=== PATIENT | male | born 1990 | race Two or more races ===

== ENCOUNTER 2019-01-20 15:56 | Emergency (ER) | payer MEDICAID, OTHER ==
[~2019-01-20] VITALS: Ht 190.5 cm; Wt 77.1 kg
[2019-01-20 17:35] VITALS: BP 140/70
[2019-01-20] MEDS ORDERED: IBUPROFEN 600 MG TABLET PO ONE ×2 (18:05→18:30)
== END 2019-01-20 18:27 | disposition home or self-care (01) ==
LOC: ER 15:59
DX: S39.012A Strain of muscle, fascia and tendon of lower back, initial encounter (principal); R51 Headache; M25.511 Pain in right shoulder; M25.531 Pain in right wrist; M62.830 Muscle spasm of back; V49.49XA Driver injured in collision with other motor vehicles in traffic accident, initial encounter; Y93.89 Activity, other specified; Y92.413 State road as the place of occurrence of the external cause; Y99.8 Other external cause status

== ENCOUNTER 2024-06-05 20:36 | Emergency (ER) | payer OTHER ==
[~2024-06-05] VITALS: Ht 190.5 cm; Wt 74.8 kg
[2024-06-05 20:36] VITALS: BP 116/74; TEMP 98.2; O2SAT 97
[~2024-06-05 20:36] MED LIST: IBUP-1955 PO
== END 2024-06-06 00:06 | disposition home or self-care (01) ==
LOC: ER 20:40
DX: M79.671 Pain in right foot (principal)
CPT/HCPCS: 73630-TC

== ENCOUNTER 2024-07-24 22:05 | Emergency (ER) | payer OTHER ==
[~2024-07-24] VITALS: Ht 190.5 cm; Wt 74.8 kg
[2024-07-24] MEDS ORDERED: AMOX/CLAVULANATE 875 MG TABLET ONE (23:20)
[2024-07-24] MEDS: AMOX/CLAVULANATE 875 MG TABLET PO ONE (23:23)
[2024-07-24] MEDS: BACITRACIN ZINC OINT PACKET 1 EA PACKET TP ONE (23:24)
[2024-07-24] MEDS ORDERED: RABIES VACCINE (PCEC)/PF 1 EA KIT IM ONE (23:27)
[2024-07-24] MEDS ORDERED: AMOX-430 PO (23:28)
[2024-07-25] MEDS: RABIES IMMUNE GLOBULIN/PF 150 UNIT/ML VIAL IM ONE (00:20)
[2024-07-25] MEDS: RABIES VACCINE (PCEC)/PF 1 EA KIT IM ONE (00:20)
[2024-07-25 00:22] VITALS: BP 109/56; TEMP 98.4; O2SAT 98
[2024-07-27] MEDS ORDERED: RABIES VACCINE (PCEC)/PF 1 EA KIT IM ONE (18:54)
== END 2024-07-25 00:22 | disposition home or self-care (01) ==
LOC: ER 22:08
DX: S61.432A Puncture wound without foreign body of left hand, initial encounter (principal); Z79.899 Other long term (current) drug therapy; Z20.3 Contact with and (suspected) exposure to rabies; W55.01XA Bitten by cat, initial encounter; Y93.89 Activity, other specified; Y92.89 Other specified places as the place of occurrence of the external cause; Y99.8 Other external cause status
CPT/HCPCS: 90375

== ENCOUNTER 2024-07-26 15:26 | Emergency (ER) | payer OTHER ==
[~2024-07-26] VITALS: Ht 190.5 cm; Wt 75.3 kg
[~2024-07-26 15:26] MED LIST changes: +AMOX-430 PO
[2024-07-26 15:28] VITALS: BP 114/66; TEMP 98.3
[2024-07-26] MEDS: RABIES VACCINE (PCEC)/PF 1 EA KIT IM ONE (15:56)
[2024-07-26 16:11] VITALS: O2SAT 98
[2024-07-27] MEDS ORDERED: RABIES VACCINE (PCEC)/PF 1 EA KIT IM ONE (17:30)
== END 2024-07-26 16:21 | disposition home or self-care (01) ==
LOC: ER 15:28
DX: S61.432D Puncture wound without foreign body of left hand, subsequent encounter (principal); Z23 Encounter for immunization; Z29.14 Encounter for prophylactic rabies immune globulin; Z60.2 Problems related to living alone; Z79.899 Other long term (current) drug therapy; W55.01XD Bitten by cat, subsequent encounter

== ENCOUNTER 2024-07-27 16:58 | Emergency (ER) | payer OTHER ==
[~2024-07-27] VITALS: Ht 190.5 cm; Wt 74.8 kg
[2024-07-27 17:05] VITALS: BP 102/68; TEMP 98
[2024-07-27] MEDS ORDERED: RABIES VACCINE (PCEC)/PF 1 EA KIT IM ONE ×2 (17:29)
[2024-07-27 19:07] VITALS: O2SAT 98
== END 2024-07-27 19:07 | disposition home or self-care (01) ==
LOC: ER 17:28
DX: S61.452D Open bite of left hand, subsequent encounter (principal); W55.01XD Bitten by cat, subsequent encounter; Z23 Encounter for immunization

== ENCOUNTER 2024-07-31 11:44 | Emergency (ER) | payer OTHER ==
[~2024-07-31] VITALS: Ht 190.5 cm; Wt 74.8 kg
[2024-07-31 11:52] VITALS: BP 109/52; TEMP 98.6
[2024-07-31] MEDS ORDERED: RABIES VACCINE (PCEC)/PF 1 EA KIT IM ONE (12:25)
[2024-07-31] MEDS: RABIES VACCINE (PCEC)/PF 1 EA KIT IM ONE (12:34)
[2024-07-31 12:35] VITALS: O2SAT 99
== END 2024-07-31 12:35 | disposition home or self-care (01) ==
LOC: ER 11:44
DX: T14.8XXD Other injury of unspecified body region, subsequent encounter (principal); Z23 Encounter for immunization; Z60.2 Problems related to living alone; W55.01XD Bitten by cat, subsequent encounter

== ENCOUNTER → 2025-03-03 | Emergency (ER) | payer OTHER ==
[~2025-03-03] VITALS: Ht 190.5 cm; Wt 72.6 kg
[2025-03-03 02:32] VITALS: BP 101/61; TEMP 98; O2SAT 99
== END | disposition home or self-care (01) ==
LOC: ER 01:19
DX: F43.0 Acute stress reaction (principal); I45.9 Conduction disorder, unspecified